=== PATIENT | female | born 1995 ===

== ENCOUNTER 2021-07-31 12:39 | Emergency (ER) | payer MEDICAID, OTHER ==
[2021-07-31 13:17] VITALS: BP 150/98
== END 2021-07-31 15:00 | disposition left against medical advice (07) ==
LOC: ED 12:39
DX: R07.9 Chest pain, unspecified (principal); Z53.21 Procedure and treatment not carried out due to patient leaving prior to being seen by health care provider; R10.9 Unspecified abdominal pain; R11.2 Nausea with vomiting, unspecified

== ENCOUNTER 2021-09-17 00:24 | Emergency (ER) | payer OTHER | END 2021-09-17 10:33 | disposition left against medical advice (07) | LOC: ED 00:24 | DX: S69.91XA Unspecified injury of right wrist, hand and finger(s), initial encounter (principal); Z53.21 Procedure and treatment not carried out due to patient leaving prior to being seen by health care provider; X58.XXXA Exposure to other specified factors, initial encounter; Y93.89 Activity, other specified; Y92.89 Other specified places as the place of occurrence of the external cause; Y99.8 Other external cause status ==